=== PATIENT | female | born 1980 | race Caucasian/White ===

== ENCOUNTER 2021-11-30 10:42 | Emergency (ER) | payer BC, SELFPAY | END 2021-11-30 11:14 | disposition home or self-care (01) | LOC: CSHERS 10:42 | DX: H66.91 Otitis media, unspecified, right ear (principal) | CPT/HCPCS: 99282 ==

== ENCOUNTER 2022-07-25 11:46 | Emergency (ER) | payer SELFPAY | END 2022-07-25 13:22 | disposition home or self-care (01) | LOC: CSHERS 11:46 | DX: J01.90 Acute sinusitis, unspecified (principal) | CPT/HCPCS: 71045 ==

== ENCOUNTER 2022-10-31 10:11 | Emergency (ER) | payer SELFPAY | END 2022-10-31 11:54 | disposition home or self-care (01) | LOC: CSHERS 10:11 | DX: J18.9 Pneumonia, unspecified organism (principal) | CPT/HCPCS: 71046; 93005 ==